=== PATIENT | male | born 1995 | race Caucasian/White ===

== ENCOUNTER 2020-06-16 21:11 | Emergency (ER) | payer BC, SELFPAY ==
[2020-06-16] MEDS ORDERED: Ibuprofen 200 MG TAB ONE (21:21)
[2020-06-16] MEDS ORDERED: Acetaminophen/Codeine 30-300mg Tablet ONE (21:51)
--- NOTE | 2020-06-17 07:32 | RAD ---
LEFT HAND 3 VIEWS: DAET: 06/16/2020. FINDINGS: There is a fracture of the neck of the distal 5th metacarpal with palmar angulation of the metacarpal head. The other bones appear intact. The joints appear normal. IMPRESSION: Fracture of the distal 5th metacarpal. POS: HOME
== END 2020-06-16 22:00 | disposition home or self-care (01) ==
LOC: BURERS 21:11
DX: S62.367A Nondisplaced fracture of neck of fifth metacarpal bone, left hand, initial encounter for closed fracture (principal); F17.210 Nicotine dependence, cigarettes, uncomplicated; W22.09XA Striking against other stationary object, initial encounter
CPT/HCPCS: 29125; 99406